=== PATIENT | female | born 2000 | race Caucasian/White ===

== ENCOUNTER 2022-09-29 15:00 | Outpatient (CLI) | payer OTHER, SELFPAY ==
--- NOTE | 2022-09-29 | US_ITS ---
WS: [id number] EARLY OBSTETRICAL ULTRASOUND (<14 WEEKS). 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 Transabdominal and transvaginal imaging is performed. What appears to be a gestational sac is identif ied low-lying along the endometrial canal. Gestational sac corresponds to an age of 7 weeks and 0 day s. On transvaginal imaging the yolk sac is large measuring greater than 6 mm. The adjacent crown-rump is identified but there is no cardiac activity. [place]-rump length measurement of 0.4 cm corresponds to a gestation of 6 weeks and 1 day. There is no free fluid in the cul-de-sac. There is a very small of fluid along the cervical canal. Co rpus luteum cyst RIGHT ovary. No adnexal masses other than the ovaries. US/US OB <=14 wk fetus w transvag IMPRESSION: 1. Abnormally low lying gestational sac. 2. Sac measurement corresponds to gestation of 7 weeks 0 days. 3. Abnormal yolk sac. 4. There is what appears to be a crown-rump length adjacent to the yolk sac bu t there is no cardiac activity. If this is a crown-rump length it corresponds t o a gestation of 6 weeks and 1 day. Findings are all concerning for abnormal ge station with embryonic demise. Short-term transvaginal ultrasound follow-up can be obtained to confirm no developing cardiac activity.
== END 2022-09-29 15:01 | disposition home or self-care (01) ==
PROVIDERS: Visit Provider Family Medicine
DX: O46.91 Antepartum hemorrhage, unspecified, first trimester (principal); Z3A.01 Less than 8 weeks gestation of pregnancy
CPT/HCPCS: 76801; 76817

== ENCOUNTER 2022-09-30 09:52 | Outpatient (CLI) | payer OTHER, SELFPAY | END 2022-09-30 09:53 | disposition home or self-care (01) | PROVIDERS: Visit Provider Family Medicine | DX: O20.9 Hemorrhage in early pregnancy, unspecified (principal) | CPT/HCPCS: 84702 ==